=== PATIENT | female | born 1930 | race Caucasian/White ===

== ENCOUNTER 2017-04-18 14:26 | Inpatient (IN) ==
[2017-04-18 15:29] LABS: MANUAL DIFF NEEDED? NO
--- NOTE | 2017-04-18 15:32 | Diag Imaging Result Doc PS360 ---
CHEST-PORTABLE - 04/18/2017 INDICATION: AMS TECHNIQUE: COMPARISON: None FINDINGS: There is a focal alveolar infiltrate at the lateral left lung base. Heart size and pulmonary vascularity is normal. No pneumothorax or pleural effusion. IMPRESSION: Focal infiltrate in the lateral left lung base. Correlate for probable pneumonia or aspiration. Electronically signed by Robby Perkins 04/18/2017 3:29 PM
[2017-04-18 15:33] LABS: BASO% 0.3 % (0.0-0.8); EOS# 0.14 X1000 (0.0-0.7); EOS% 1.6 % (0.0-10.0); HEMATOCRIT 29.9 % (37.0-47.0); IMM GRAN# 0.03 X1000 (0.0-0.04); IMM GRAN% 0.3 % (0.0-0.5); LYMPH# 1.07 X1000 (1.2-3.4); LYMPH% 12.3 % (20.5-51.1); MCH 30.5 PG (27-31); MCHC 33.4 g/dL (33-37); MCV 91.2 FL (81-99); MONO# 0.98 X1000 (0.11-0.59); MONO% 11.3 % (1.7-9.3); MPV 10.4 FL (7.4-10.4); NEUT% 74.2 % (42.2-75.2); PLT 173 X1000 (130-400); RBC 3.28 XMIL (4.2-5.4)
[2017-04-18 15:34] LABS: URINE SOURCE CATH
--- NOTE | 2017-04-18 15:35 | EKG Report ---
Test Performed on : 04/18/2017 2:40:59 PM Test Reason : ams Blood Pressure : / mmHG Vent. Rate : 088 BPM Atrial Rate : 088 BPM P-R Int : 136 ms QRS Dur : 112 ms QT Int : 380 ms P-R-T Axes : 003 025 018 degrees QTc Int : 459 ms Normal sinus rhythm. Incomplete right bundle branch block Borderline ECG When compared with ECG of 08-JUN-2011 18:45, No significant change was found Unconfirmed Result
[2017-04-18 15:38] LABS: BILIRUBIN URINE NEGATIVE (NEGATIVE); BLOOD URINE NEGATIVE (NEGATIVE); COLOR YELLOW; GLUCOSE URINE NEGATIVE (NEGATIVE); LEUKOCYTES URINE TRACE (NEGATIVE); NITRITE URINE NEGATIVE (NEGATIVE); PH URINE 5.5; PROTEIN URINE 30 mg/dL (NEGATIVE); TURBIDITY URINE CLEAR (CLEAR); URINE MICRO REVIEW NEEDED? YES; UROBILINOGEN URINE NORMAL (NORMAL)
[2017-04-18 15:41] LABS: INR 1.03; PROTIME 10.8 Seconds (9.2-11.7); PTT 31.3 Seconds (22.0-36.0)
[2017-04-18 15:50] LABS: ALBUMIN 3.9 g/dL (3.5-5.0); CALCIUM 9.3 mg/dL (8.8-10.2); MAGNESIUM 1.6 mg/dL (1.5-2.7); POTASSIUM 4.5 mmol/L (3.5-5.1); TOTAL BILIRUBIN 0.32 mg/dL (0.20-1.00)
--- NOTE | 2017-04-18 15:57 | Diag Imaging Result Doc PS360 ---
HEAD W/O CONTRAST - 04/18/2017 INDICATION: AMS TECHNIQUE: A CT dose reduction protocol was used. COMPARISON: None FINDINGS: There is mild diffuse atrophy. 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 There are several old lacunar bilaterally. No intracranial mass or hemorrhage. The skull is intact. The sinuses, mastoids, and middle ears are clear. IMPRESSION: Chronic ischemic changes of the brain. No acute abnormality. Electronically signed by Robby Perkins 04/18/2017 3:55 PM
[2017-04-18 15:59] LABS: UR EPITHELIAL CELLS <10 /HPF (<10); URINE BACTERIA NEGATIVE /HPF; URINE CULTURE NEEDED? YES; URINE RBC <10 /HPF (<10); URINE WBC <10 /HPF (<10)
[2017-04-18 16:01] LABS: URINE CASTS NONE SEEN
[2017-04-18] MEDS ORDERED: NS 500 ML IV SCH (16:44)
[2017-04-18] MEDS ORDERED: LEVAQUIN 500 MG/D5W 500 MG/100 ML IVPB IV ONE (16:55)
--- NOTE | 2017-04-18 16:57 | PROVIDER DOCUMENTATION ---
This chart was entered by Eugenio Devi Scribe, acting as scribe for Jakob Thompson MD. HPI-Neurological Disorder - General Chief Complaint: Altered Mental Status Stated Complaint: UTI SX/AMS Time Seen by Provider: 04/18/17 14:45 Source: family Unable to obtain history due to:: altered Allergies/Adverse Reactions: Patient Allergies Allergy/AdvReac Type Severity Reaction Status Date / Time Penicillins Allergy Unknown Unknown Verified 10/18/13 12:36 Home Medications: Home Medication List Medication Instructions Recorded Confirmed Last Taken Type Amlodipine [Norvasc] 5 mg PO DAILY 10/18/13 05/24/16 10/18/13 08:00 History Donepezil [Aricept] 10 mg PO DAILY 10/18/13 05/24/16 10/18/13 08:00 History Famotidine 20 mg PO BID 10/18/13 05/24/16 10/18/13 08:00 History Guaifenesin E.r. [Mucinex] 600 mg PO BID PRN PRN 10/18/13 05/24/16 10/18/13 08: 00 History Latanoprost 0.005% Oph Soln 1 drop DAILY 10/18/13 05/24/16 10/17/13 22:00 History [Xalatan 0.005% Oph Soln] Loratadine [Claritin] 10 mg PO DAILY PRN PRN 10/18/13 05/24/16 10/18/13 08:00 History Lorazepam 0.5 mg PO QAM 10/18/13 05/24/16 10/18/13 08:00 History Lorazepam [Ativan] 1 mg PO QHS 10/18/13 05/24/16 10/17/13 22:00 History Metformin [Glucophage] 500 mg PO BID CC 10/18/13 05/24/16 10/18/13 08:00 History SIMVAstatin [Zocor] 20 mg PO QHS 10/18/13 05/24/16 10/17/13 22:00 History Timolol 0.5% Oph Solution 1 drop BOTH EYES BID 10/18/13 05/24/16 10/18/13 08:00 History [Timoptic 0.5% Oph Solution] Bismuth Subsalicylate [Maalox] 30 ml PO Q4H PRN 05/24/16 05/24/16 Unknown History Cyanocobalamin (Vitamin B-12) 1,000 mcg PO DAILY 05/24/16 05/24/16 Unknown History [Vitamin B12] Ergocalciferol (Vitamin D2) 50,000 unit PO DIRECTED 05/24/16 05/24/16 Unknown History [Vitamin D] Ferrous Sulfate [Iron] 325 mg PO DAILY 05/24/16 05/24/16 Unknown History Loperamide [Imodium] 2 mg PO PRN PRN 05/24/16 05/24/16 Unknown History Losartan [Cozaar] 50 mg PO DAILY 05/24/16 05/24/16 Unknown History Magnesium Hydroxide [Milk of 30 ml PO PRN PRN 05/24/16 05/24/16 Unknown History Magnesia] Melatonin 4.5 mg PO HS 05/24/16 05/24/16 Unknown History Memantine Xr [Namenda Xr] 7 mg PO DAILY 05/24/16 05/24/16 Unknown History Trazodone [Desyrel] 50 mg PO HS 05/24/16 05/24/16 Unknown History Ubidecarenone [Co Q-10] 100 mg PO DAILY 05/24/16 05/24/16 Unknown History Venlafaxine E.r. [Effexor Xr] 300 mg PO DAILY 05/24/16 05/24/16 Unknown History Acetaminophen [Tylenol] 650 mg PO Q4H PRN PRN #0 tablet 05/26/16 Unknown Rx Dicyclomine [Bentyl] 10 mg PO TID PRN PRN #30 capsule 05/26/16 Unknown Rx Mag Hydrox/Al Hydrox/Simeth 30 ml PO Q4H PRN PRN #0 udc 05/26/16 Unknown Rx [Maalox Plus Liquid] - History of Present Illness-Neuro Nature of Presenting Problem: Patient is a 86 y/o F that presents to the ER after son found patient confused and her back hurting. patient is a resident at a local [facility]. Son reports increased confusion in patient. No recent injury. History of UTI's in the past. Patient believes she had a stroke. Severity: reports: mild, moderate Onset/Duration: reports: unsure Timing: reports: still present, constant Context: denies: fever, impaired speech, paresthesia, facial droop, falling Character of Altered Mental Status: reports: confused New weakness or altered sensation location:: reports: none Associated Symptoms: reports: confusion, neck/back pain. denies: headache, fever/chills, loss of consciousness, nausea, vomiting Similar Symptoms Previously?: Yes Recently seen or treated by another doctor?: No Review of Systems - Adult - REVIEW OF SYSTEMS - ADULT ROS:: ROS per family Constitutional: denies: chills, fever Eyes: reports: no symptoms reported Ears, Nose, Mouth & Throat: reports: no symptoms reported Cardiovascular: denies: chest pain, palpitations, syncope Respiratory: denies: cough, shortness of breath, wheezing Gastrointestinal: denies: abdominal pain, diarrhea, nausea, vomiting Genitourinary: reports: frequent UTI's. denies: dysuria, frequency, hematuria Musculoskeletal: reports: back pain. denies: joint pain Integumentary: reports: no symptoms reported Neurological: reports: other (ams). denies: dizziness/vertigo, headache/ migraines Psychiatric: reports: no symptoms reported Endocrine: reports: no symptoms reported Hematologic/Lymphatic: reports: no symptoms reported Allergic/Immunologic: reports: no symptoms reported All Other Systems: Reviewed and Negative Past History - Adult - PAST MEDICAL HISTORY-ADULT Review of Records: reports: Old Records Reviewed, Nursing Assessment Review, Medications Reviewed Psychiatric: reports: depression - PRIOR SURGERIES/PROCEDURES Surgical/Procedure History: reports: hysterectomy, other (tumor removed) - IMMUNIZATION STATUS Childhood Immunizations: See Nurse Assessment Flu Vaccine: See Nurse Assessment - FAMILY HISTORY Family History: reviewed, not pertinent - SOCIAL HISTORY Smoking: quit less than 1 year, cigarettes Living Situation: care facility Physical Exam- Neurological - Physical Exam-Neuro Initial Vital Signs Reviewed: Yes General Appearance: alert, no apparent distress Eye Exam: bilateral eye: normal inspection, PERRL HENMT: normocephalic/atraumatic, moist mucous membranes, normal ENT inspection Head Injury: no evidence of injury. 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 II-XII nml as tested, no motor/sensory deficits Integumentary: normal color, warm/dry Psych/Mental Status: other (normal and appropriate for age) Progress - PLAN OF CARE/RESULTS Progress/Plan/Lab Results: Vital Signs - 8 hr 04/18/17 14:32 04/18/17 15:30 Temperature 97.2 F L Pulse Rate 95 H 85 Respiratory Rate 18 16 Blood Pressure 122/50 133/61 O2 Sat by Pulse Oximetry 100 Laboratory Results - last 24 hr 04/18/17 04/18/17 04/18/17 14:54 14:54 14:54 WBC 8.68 RBC 3.28 L Hgb 10.0 L Hct 29.9 L MCV 91.2 MCH 30.5 MCHC 33.4 RDW Std Deviation 13.0 Plt Count 173 MPV 10.4 Immature Gran % (Auto) 0.3 Neut % (Auto) 74.2 Lymph % (Auto) 12.3 L [place] % (Auto) 11.3 H Eos % (Auto) 1.6 Baso % (Auto) 0.3 Immature Gran # (Auto) 0.03 Neut # (Auto) 6.43 Lymph # (Auto) 1.07 L [place] # (Auto) 0.98 H Eos # (Auto) 0.14 Baso # (Auto) 0.03 PT INR PTT (Actin FS) Sodium 133 L Potassium 4.5 Chloride 96 L Carbon Dioxide 24 L Anion Gap 13 BUN 35 H Creatinine 2.1 H Estimated GFR/1.73 m2 22 BUN/Creatinine Ratio 17 Glucose 98 Calculated Osmolality 274 Calcium 9.3 Magnesium 1.6 Total Bilirubin 0.32 AST 13 ALT 7 L Alkaline Phosphatase 72 Creatine Kinase 39 Troponin T Qyl-V-Mhagajekdxw Pept 1892 H Total Protein 7.0 Albumin 3.9 Globulin 3.1 Albumin/Globulin Ratio 1.3 Plasma Lactate Urine Source Urine Color Urine Turbidity Urine pH Ur Specific [place] Urine Protein Ur Glucose (Stick) Ur Ketones (Stick) Urine Blood Urine Nitrite Urine Bilirubin Urobilinogen Dipstick Urine Leukocytes Urine WBC (Auto) Urine RBC (Auto) U Epithel Cells (Auto) Urine Bacteria (Auto) Urine Crystals Small Round Cells Urine Casts Urine Yeast-like Cells 04/18/17 04/18/1717 14:54 14:54 15:25 WBC RBC Hgb Hct MCV MCH MCHC RDW Std Deviation Plt Count MPV Immature Gran % (Auto) Neut % (Auto) Lymph % (Auto) [place] % (Auto) Eos % (Auto) Baso % (Auto) Immature Gran # (Auto) Neut # (Auto) Lymph # (Auto) [place] # (Auto) Eos # (Auto) Baso # (Auto) PT 10.8 INR 1.03 PTT (Actin FS) 31.3 Sodium Potassium Chloride Carbon Dioxide Anion Gap BUN Creatinine Estimated GFR/1.73 m2 BUN/Creatinine Ratio Glucose Calculated Osmolality Calcium Magnesium Total Bilirubin AST ALT Alkaline Phosphatase Creatine Kinase Troponin T 0.051 Pqz-D-Mqvojmexhsk Pept Total Protein Albumin Globulin Albumin/Globulin Ratio Plasma Lactate Urine Source CATH Urine Color YELLOW Urine Turbidity CLEAR Urine pH 5.5 Ur Specific [place] 1.020 Urine Protein 30 A Ur Glucose (Stick) NEGATIVE Ur Ketones (Stick) NEGATIVE Urine Blood NEGATIVE Urine Nitrite NEGATIVE Urine Bilirubin NEGATIVE Urobilinogen Dipstick NORMAL Urine Leukocytes TRACE A Urine WBC (Auto) <10 Urine RBC (Auto) <10 U Epithel Cells (Auto) <10 Urine Bacteria (Auto) NEGATIVE Urine Crystals Not Reportable Small Round Cells Not Reportable Urine Casts NONE SEEN Urine Yeast-like Cells Not Reportable 04/18/17 16:10 WBC RBC Hgb Hct MCV MCH MCHC RDW Std Deviation Plt Count MPV Immature Gran % (Auto) Neut % (Auto) Lymph % (Auto) [place] % (Auto) Eos % (Auto) Baso % (Auto) Immature Gran # (Auto) Neut # (Auto) Lymph # (Auto) [place] # (Auto) Eos # (Auto) Baso # (Auto) PT INR PTT (Actin FS) Sodium Potassium Chloride Carbon Dioxide Anion Gap BUN Creatinine Estimated GFR/1.73 m2 BUN/Creatinine Ratio Glucose Calculated Osmolality Calcium Magnesium Total Bilirubin AST ALT Alkaline Phosphatase Creatine Kinase Troponin T Rts-E-Uoapvjyrlsc Pept Total Protein Albumin Globulin Albumin/Globulin Ratio Plasma Lactate 2.1 Urine Source Urine Color Urine Turbidity Urine pH Ur Specific [place] Urine Protein Ur Glucose (Stick) Ur Ketones (Stick) Urine Blood Urine Nitrite Urine Bilirubin Urobilinogen Dipstick Urine Leukocytes Urine WBC (Auto) Urine RBC (Auto) U Epithel Cells (Auto) Urine Bacteria (Auto) Urine Crystals Small Round Cells Urine Casts Urine Yeast-like Cells Orders Category Date Time Status Cardiac Monitoring DIRECTED Care 04/18/17 15:11 Active Finger Stick Blood Sugar (ED) DIRECTED Care 04/18/17 15:11 Active Saline Loc NOW Care 04/18/17 15:11 Active CHEST-PORTABLE [RAD] Stat Exams 04/18/17 15:11 Completed HEAD W/O CONTRAST [CT] Stat Exams 04/18/17 15:11 Completed BLOOD CULTURE [BLDCUL] Stat Lab 04/18/17 15:20 Ordered CBC WITH ELECTRONIC DIFF [HEME] Stat Lab 04/18/17 14:54 Completed CK PROFILE [SP CHEM] Stat Lab 04/18/17 14:54 Completed COMPREHENSIVE METABOLIC PANEL [CHEM] Stat Lab 04/18/17 14:54 Completed LACTATE, PLASMA [CHEM] Stat Lab 04/18/17 16:10 Completed MAGNESIUM [CHEM] Stat Lab 04/18/17 14:54 Completed PRO B-NATRIURETIC PEPTIDE Stat Lab 04/18/17 14:54 Completed PROTIME WITH INR [COAG] Stat Lab 04/18/17 14:54 Completed PTT [COAG] Stat Lab 04/18/17 14:54 Completed TROPONIN T Stat Lab 04/18/17 14:54 Completed URINALYSIS W/POSS RFLX CULT-1 [URINALYSIS] Stat Lab 04/18/17 15:25 Completed URINE CULTURE [RM] Routine Lab 04/18/17 16:00 Received URINE MANUAL MICROSCOPIC [URINALYSIS] Stat Lab 04/18/17 15:25 Completed 0.9% Sodium Chloride Inj [Ns] 500 ml Med 04/18/17 16:44 Active IV 125 mls/hr Levaquin 500 mg/D5w IV Now Med 04/18/17 16:55 Ordered Levofloxacin 500 mg/D5w [Levaquin 500 mg/D5w] 500 mg in 100 ml IV NOW Pulse Oximetry Stat Oth 04/18/17 15:11 Active EKG [EKG] Stat Ther 04/18/17 14:40 Draft Orders Category Date Time Status Cardiac Monitoring DIRECTED Care 04/18/17 15:11 Active Finger Stick Blood Sugar (ED) DIRECTED Care 04/18/17 15:11 Active Saline Loc NOW Care 04/18/17 15:11 Active CHEST-PORTABLE [RAD] Stat Exams 04/18/17 15:11 Completed HEAD W/O CONTRAST [CT] Stat Exams 04/18/17 15:11 Completed BLOOD CULTURE [BLDCUL] Stat Lab 04/18/17 15:20 Ordered CBC WITH ELECTRONIC DIFF [HEME] Stat Lab 04/18/17 14:54 Completed CK PROFILE [SP CHEM] Stat Lab 04/18/17 14:54 Completed COMPREHENSIVE METABOLIC PANEL [CHEM] Stat Lab 04/18/17 14:54 Completed LACTATE, PLASMA [CHEM] Stat Lab 04/18/17 16:10 Completed MAGNESIUM [CHEM] Stat Lab 04/18/17 14:54 Completed PRO B-NATRIURETIC PEPTIDE Stat Lab 04/18/17 14:54 Completed PROTIME WITH INR [COAG] Stat Lab 04/18/17 14:54 Completed PTT [COAG] Stat Lab 04/18/17 14:54 Completed TROPONIN T Stat Lab 04/18/17 14:54 Completed URINALYSIS W/POSS RFLX CULT-1 [URINALYSIS] Stat Lab 04/18/17 15:25 Completed URINE CULTURE [RM] Routine Lab 04/18/17 16:00 Received URINE MANUAL MICROSCOPIC [URINALYSIS] Stat Lab 04/18/17 15:25 Completed 0.9% Sodium Chloride Inj [Ns] 500 ml Med 04/18/17 16:44 Active IV 125 mls/hr Pulse Oximetry Stat Oth 04/18/17 15:11 Active EKG [EKG] Stat Ther 04/18/17 14:40 Draft Vital Signs Temp Pulse Resp BP Pulse Ox 04/18/17 15:30 85 16 133/61 04/18/17 14:32 97.2 F L 95 H 18 122/50 100 Penicillins Allergy (Unknown, Verified 10/18/13 12:36) Unknown Amlodipine [Norvasc] 5 mg PO DAILY 10/18/13 Donepezil [Aricept] 10 mg PO DAILY 10/18/13 Famotidine 20 mg PO BID 10/18/13 Guaifenesin E.r. [Mucinex] 600 mg PO BID PRN PRN 10/18/13 Latanoprost 0.005% Oph Soln [Xalatan 0.005% Oph Soln] 1 drop DAILY 10/18/13 Loratadine [Claritin] 10 mg PO DAILY PRN PRN 10/18/13 Lorazepam 0.5 mg PO QAM 10/18/13 Lorazepam [Ativan] 1 mg PO QHS 10/18/13 Metformin [Glucophage] 500 mg PO BID CC 10/18/13 SIMVAstatin [Zocor] 20 mg PO QHS 10/18/13 Timolol 0.5% Oph Solution [Timoptic 0.5% Oph Solution] 1 drop BOTH EYES BID Bismuth Subsalicylate [Maalox] 30 ml PO Q4H PRN 05/24/16 Cyanocobalamin (Vitamin B-12) [Vitamin B12] 1,000 mcg PO DAILY 05/24/16 Ergocalciferol (Vitamin D2) [Vitamin D] 50,000 unit PO DIRECTED 05/24/16 Ferrous Sulfate [Iron] 325 mg PO DAILY 05/24/16 Loperamide [Imodium] 2 mg PO PRN PRN 05/24/16 Losartan [Cozaar] 50 mg PO DAILY 05/24/16 Magnesium Hydroxide [Milk of Magnesia] 30 ml PO PRN PRN 05/24/16 Melatonin 4.5 mg PO HS 05/24/16 Memantine Xr [Namenda Xr] 7 mg PO DAILY 05/24/16 Trazodone [Desyrel] 50 mg PO HS 05/24/16 Ubidecarenone [Co Q-10] 100 mg PO DAILY 05/24/16 Venlafaxine E.r. [Effexor Xr] 300 mg PO DAILY 05/24/16 Acetaminophen [Tylenol] 650 mg PO Q4H PRN PRN #0 tablet 05/26/16 Dicyclomine [Bentyl] 10 mg PO TID PRN PRN #30 capsule 05/26/16 Mag Hydrox/Al Hydrox/Simeth [Maalox Plus Liquid] 30 ml PO Q4H PRN PRN #0 udc Laboratory 04/18/17 04/18/17 04/18/17 16:10 15:25 14:54 WBC RBC Hgb Hct MCV MCH MCHC RDW Std Deviation Plt Count MPV Immature Gran % (Auto) Neut % (Auto) Lymph % (Auto) [place] % (Auto) Eos % (Auto) Baso % (Auto) Immature Gran # (Auto) Neut # (Auto) Lymph # (Auto) [place] # (Auto) Eos # (Auto) Baso # (Auto) PT INR PTT (Actin FS) Sodium Potassium Chloride Carbon Dioxide Anion Gap BUN Creatinine Estimated GFR/1.73 m2 BUN/Creatinine Ratio Glucose Calculated Osmolality Calcium Magnesium Total Bilirubin AST ALT Alkaline Phosphatase Creatine Kinase Troponin T 0.051 Ayl-U-Bwskiwsfjzw Pept Total Protein Albumin Globulin Albumin/Globulin Ratio Plasma Lactate 2.1 Urine Source CATH Urine Color YELLOW Urine Turbidity CLEAR Urine pH 5.5 Ur Specific [place] 1.020 Urine Protein 30 A Ur Glucose (Stick) NEGATIVE Ur Ketones (Stick) NEGATIVE Urine Blood NEGATIVE Urine Nitrite NEGATIVE Urine Bilirubin NEGATIVE Urobilinogen Dipstick NORMAL Urine Leukocytes TRACE A Urine WBC (Auto) <10 Urine RBC (Auto) <10 U Epithel Cells (Auto) <10 Urine Bacteria (Auto) NEGATIVE Urine Crystals Not Reportable Small Round Cells Not Reportable Urine Casts NONE SEEN Urine Yeast-like Cells Not Reportable 04/18/17 04/18/17 04/18/17 14:54 14:54 14:54 WBC 8.68 RBC 3.28 L Hgb 10.0 L Hct 29.9 L MCV 91.2 MCH 30.5 MCHC 33.4 RDW Std Deviation 13.0 Plt Count 173 MPV 10.4 Immature Gran % (Auto) 0.3 Neut % (Auto) 74.2 Lymph % (Auto) 12.3 L [place] % (Auto) 11.3 H Eos % (Auto) 1.6 Baso % (Auto) 0.3 Immature Gran # (Auto) 0.03 Neut # (Auto) 6.43 Lymph # (Auto) 1.07 L [place] # (Auto) 0.98 H Eos # (Auto) 0.14 Baso # (Auto) 0.03 PT 10.8 INR 1.03 PTT (Actin FS) 31.3 Sodium Potassium Chloride Carbon Dioxide Anion Gap BUN Creatinine Estimated GFR/1.73 m2 BUN/Creatinine Ratio Glucose Calculated Osmolality Calcium Magnesium Total Bilirubin AST ALT Alkaline Phosphatase Creatine Kinase Troponin T Bki-V-Judnzfdxqmj Pept 1892 H Total Protein Albumin Globulin Albumin/Globulin Ratio Plasma Lactate Urine Source Urine Color Urine Turbidity Urine pH Ur Specific [place] Urine Protein Ur Glucose (Stick) Ur Ketones (Stick) Urine Blood Urine Nitrite Urine Bilirubin Urobilinogen Dipstick Urine Leukocytes Urine WBC (Auto) Urine RBC (Auto) U Epithel Cells (Auto) Urine Bacteria (Auto) Urine Crystals Small Round Cells Urine Casts Urine Yeast-like Cells 04/18/17 14:54 WBC RBC Hgb Hct MCV MCH MCHC RDW Std Deviation Plt Count MPV Immature Gran % (Auto) Neut % (Auto) Lymph % (Auto) [place] % (Auto) Eos % (Auto) Baso % (Auto) Immature Gran # (Auto) Neut # (Auto) Lymph # (Auto) [place] # (Auto) Eos # (Auto) Baso # (Auto) PT INR PTT (Actin FS) Sodium 133 L Potassium 4.5 Chloride 96 L Carbon Dioxide 24 L Anion Gap 13 BUN 35 H Creatinine 2.1 H Estimated GFR/1.73 m2 22 BUN/Creatinine Ratio 17 Glucose 98 Calculated Osmolality 274 Calcium 9.3 Magnesium 1.6 Total Bilirubin 0.32 AST 13 ALT 7 L Alkaline Phosphatase 72 Creatine Kinase 39 Troponin T Lkh-W-Awgcvxgeoan Pept Total Protein 7.0 Albumin 3.9 Globulin 3.1 Albumin/Globulin Ratio 1.3 Plasma Lactate Urine Source Urine Color Urine Turbidity Urine pH Ur Specific [place] Urine Protein Ur Glucose (Stick) Ur Ketones (Stick) Urine Blood Urine Nitrite Urine Bilirubin Urobilinogen Dipstick Urine Leukocytes Urine WBC (Auto) Urine RBC (Auto) U Epithel Cells (Auto) Urine Bacteria (Auto) Urine Crystals Small Round Cells Urine Casts Urine Yeast-like Cells Result Diagrams: 04/18/17 14:54 04/18/17 14:54 - EKG 1 Time of EKG reading by physician:: 14:40 EKG Read and Signed by:: Jakob Thompson EKG Interpretation (*Must complete 3 of following elements*): Abnormal Rate: 88 Rhythm: NSR Zanoni: normal QRS: RBB (Incomplete) [place] Interval: normal ST Wave: normal - XRAY 1 XRAY Study: Chest Impression: Abnormal XRAY Interpretation: focal infiltrate in the lateral left lung base - CT/MRI 1 CT Study: Head Impression: Abnormal CT Results: chronic ischemic changes, nothing acute - CONSULTS/PCP/HOSPITALIST Notification #1 *Consult/PCP/Hospitalist*: Dr.Scott Arvizu Time Discussed: 16:51 Reason/Comments: ams, EDITH, left lung infiltrate Consult Disposition: Will see in ED, Admit Departure - Departure Date of Disposition Decision: 04/18/17 Time of Disposition Decision: 16:53 DIAGNOSIS: Lung infiltrate, Altered mental status, EDITH (acute kidney injury) Disposition: ADMITTED INPATIENT 09 Certified Medical Emergency: Emergent Condition: Stable Referrals and Follow-Ups: Gavin Arvizu MD [Primary Care Provider] - - Critical Care Note This patient required my direct & personal management of CC.: No This chart was documented by the indicated scribe, (Eugenio Devi, [place]) and accurately reflects the services I performed and decisions made by me, Jakob Thompson MD, as attested by the provider's signature.
[2017-04-18] MEDS ORDERED: HUMALOG SUBQ ONE (19:31)
[2017-04-18] MEDS ORDERED: PERICOLACE PO PRN (19:31)
[2017-04-18] MEDS ORDERED: ZOFRAN IV PRN (19:31)
[2017-04-18] MEDS ORDERED: BENTYL PO PRN (19:31)
[2017-04-18] MEDS ORDERED: TYLENOL PO PRN ×2 (19:31)
[2017-04-18] MEDS ORDERED: IMODIUM PO PRN (19:31)
[2017-04-18] MEDS ORDERED: PEPCID PO PRN (19:31)
[2017-04-18] MEDS: NS 1,000 ML IV SCH (20:13)
[2017-04-18] MEDS: ATIVAN PO SCH (20:33)
[2017-04-18] MEDS: DESYREL PO SCH (20:34)
[2017-04-18] MEDS: ZOCOR PO SCH (20:34)
[2017-04-18] MEDS: MELATONIN PO SCH (20:35)
[2017-04-19] MEDS: TIMOPTIC 0.5% OPH SOLUTION BOTH EYES SCH ×3 (00:12→21:59)
--- NOTE | 2017-04-19 03:57 | HISTORY AND PHYSICAL ---
PRIMARY CARE PHYSICIAN: Dr. Gavin Arvizu. CHIEF COMPLAINT: Alteration of mental status. HISTORY OF PRESENT ILLNESS: An 86-year-old, white female with a very complicated past medical history, presents for evaluation of above-mentioned symptoms. Current history of present illness began yesterday. The patient went on a ride with her boyfriend as she is accustomed to on Mondays. No evidence of abnormalities were identified prior to this or during this event. Upon returning home to her assisted living facility, several caregivers noted some increasing irritability. The patient was noted to sleep poorly overnight. Upon arising this morning, patient was noted to have increased irritability with all caregivers. She had a shaking chill, but denied fevers. She also noted some shortness of breath and dysuria. No intervention was sought as patient did not readily make these symptoms available. This afternoon, patient's son presented for a visit with her granddaughter. While there, patient was noted to use foul language which is out of character. Because of these changes, patient was brought to the emergency department. Upon arrival, a full evaluation was pursued. Chest x-ray suggested a possible pneumonia. Laboratory data revealed a significant anemia and acute renal failure. Patient will be admitted to the hospital for full evaluation and management of these conditions. Of note, the patient has had a decreased appetite recently. She denies fevers, cough, congestion, change in bowel movements, hematochezia, or melena. PAST MEDICAL HISTORY: 1. History of an abnormal electrocardiogram with incomplete right bundle branch block. 2. Allergic rhinitis. 3. Anxiety/depression. 4. Cervical spine pain, chronic. 5. Constipation. 6. Type 2 diabetes. 7. Insomnia. 8. Long-standing thoracic spine pain. 9. Chronic lower extremity edema. 10. Hypertension. 11. Hypertriglyceridemia. 12. Nonalcoholic fatty liver disease. 13. Glaucoma. 14. History of hypercalcemia. 15. Hyperlipidemia. 16. Low back pain, chronic. 17. Osteoarthritis. 18. Osteoporosis. 19. History of an ovarian cyst, status post CHELSEA/BSO in the 1980s. 20. Postmenopausal state. 21. Dementia. 22. Urge/stress incontinence. CURRENT MEDICATIONS: 1. Acetaminophen 325 mg 1 tablet every 4-6 hours as needed. 2. Amlodipine 5 mg daily. 3. Benadryl 25 mg 1/2 a tablet every 6 hours as needed. 4. Bentyl 10 mg 3 times daily as needed. 5. Donepezil 100 mg daily. 6. Effexor XR 300 mg daily. 7. Famotidine 20 mg twice daily. 8. Iron sulfate 325 mg daily. 9. Latanoprost 1 drop in each eye daily. 10. Loperamide 2 mg as needed. 11. Loratadine 10 mg daily. 12. Lorazepam 0.5 mg 1 tablet in the morning and 2 tablets at bedtime. 13. Maalox as needed. 14. Melatonin 4.5 mg at bedtime. 15. Milk of magnesia as needed. 16. MiraLAX daily as needed. 17. Mucinex ER 600 mg twice daily. 18. Namenda XR 7 mg daily. 19. Pepto-Bismol as needed. 20. Senna-S 1 tablet twice daily. 21. Simvastatin 20 mg at bedtime. 22. Timolol 1 drop in each eye twice daily. 23. Trazodone 50 mg 2 tablets at bedtime. 24. Vitamin B12 1000 mcg daily. ALLERGIES: Patient states she is allergic to penicillin. SOCIAL HISTORY: Patient previously smoked 1/4 to 1/2 pack per day for 30 years. She stopped in the . She quit alcohol in 1977. She denies illicit drug use. 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 She is unable exercise routinely. FAMILY HISTORY: Patient's father passed at age 52 secondary to a suicide. Patient's mother passed at age 95 secondary to complications of a stroke. REVIEW OF SYSTEMS: A 12 point review of systems was performed. Pertinent positives and negatives are noted in the history of present illness. PHYSICAL EXAMINATION: VITAL SIGNS: Temperature 97.2 degrees, heart rate 89, respirations 19, blood pressure is 146/70. GENERAL: Elderly, in no acute distress. CARDIOVASCULAR: Regular rate and rhythm. No significant murmurs, rubs, or gallops. PULMONARY: Clear to auscultation bilaterally. ABDOMEN: Soft, nontender, nondistended. Positive bowel sounds. EXTREMITIES: Moves all extremities well. No significant clubbing, cyanosis, or edema. NEUROLOGIC: Cranial nerves 2 through 12 grossly intact. Motor and sensory grossly intact. PSYCHOLOGIC: Patient is pleasantly confused. LABORATORY DATA: White blood cell count 8.68, hemoglobin 10, hematocrit 29.9, platelet count is 173,000. PT 10.8, INR is 1.03, PTT is 31.3. Sodium 133, potassium 4.5, chloride 96, bicarb 24, BUN 35, creatinine 2.1, glucose 98, calcium 9.3, magnesium 1.6. Total bilirubin 0.32, total protein 7, albumin 3.9, alkaline phosphatase 72, AST 13, ALT 7. Urinalysis revealed 30 protein, trace leukocyte esterase. Chest x-ray revealed focal infiltrate in the lateral left lung base. CT scan of the head revealed chronic ischemic changes of the brain. No acute abnormality. ASSESSMENT AND PLAN: An 86-year-old, white female with a very complicated past medical history, presents for evaluation of alteration of mental status. Full evaluation in the emergency department revealed a presumed community-acquired pneumonia versus aspiration pneumonia with acute renal failure and acute on chronic anemia. Patient will be admitted to the hospital for full evaluation and management of each of these conditions. 1. Admit to general medicine. 2. Community-acquired pneumonia versus aspiration pneumonia-interestingly, patient's white blood cell count is within normal limits. As above, chest x-ray returned abnormal. We will initiate levofloxacin therapy. We will check blood cultures x2. We will consider a CT scan evaluation for further differentiating the significance of infiltrate. 3. Acute renal failure-is likely secondary to dehydrated state. We will start patient on aggressive, but cautious hydration. We will monitor patient's clinical course closely. Her baseline creatinine is 1.2. 4. Alteration of mental status-this is above baseline dementia. This likely is secondary to her acute illness. CT scan of the head returned negative. For now, we will treat patient's above acute illnesses. We will follow this as well. 5. Anemia-patient has chronic anemia. This does appear to be more significant than baseline. We will check an anemia panel. We will Hemoccult all stools. We will determine if further intervention is warranted. 6. Profound weakness-patient has chronic weakness. I am concerned with her acute illness that this likely will progress. We will immediately start physical therapy to maintain adequate functional status. We will follow this closely as well. 7. Diabetes-we will cover patient with sliding scale insulin. 8. Hypertension-we will continue patient on her home medications. 9. Glaucoma-we will continue home drops. This will be followed. 10. Fluid, electrolytes, nutrition. We will monitor electrolytes. Normal saline at 70 mL an hour. Renal diet. 11. Prophylaxis. Patient will be placed on sequential compression devices. cc: Gavin Arvizu MD
[2017-04-19 06:45] LABS: MANUAL DIFF NEEDED? NO
[2017-04-19] MEDS: CLARITIN PO PRN ×2 (07:00→23:00)
[2017-04-19] MEDS: MUCINEX PO PRN ×2 (07:00→22:59)
[2017-04-19 07:08] LABS: BASO% 0.2 % (0.0-0.8); EOS% 1.5 % (0.0-10.0); HEMATOCRIT 26.1 % (37.0-47.0); HEMOGLOBIN 8.6 g/dL (12.0-16.0); LYMPH# 0.89 X1000 (1.2-3.4); LYMPH% 13.5 % (20.5-51.1); MCH 30.1 PG (27-31); MCV 91.3 FL (81-99); MONO# 0.73 X1000 (0.11-0.59); MONO% 11.1 % (1.7-9.3); MPV 10.6 FL (7.4-10.4); NEUT% 73.7 % (42.2-75.2); PLT 160 X1000 (130-400); RBC 2.86 XMIL (4.2-5.4)
[2017-04-19 07:22] LABS: ALBUMIN 3.2 g/dL (3.5-5.0); CALCIUM 8.4 mg/dL (8.8-10.2); POTASSIUM 4.6 mmol/L (3.5-5.1); TOTAL BILIRUBIN 0.22 mg/dL (0.20-1.00); TOTAL PROTEIN 6.1 g/dL (6.3-8.3)
[2017-04-19] MEDS ORDERED: FERROUS SULFATE PO SCH (09:00)
[2017-04-19 10:13] LABS: FERRITIN 229 ng/mL (13-150)
[2017-04-19] MEDS: EFFEXOR XR PO SCH (10:14)
[2017-04-19] MEDS: NAMENDA XR PO SCH (10:15)
[2017-04-19] MEDS: VITAMIN B-12 PO SCH (10:15)
[2017-04-19] MEDS: XALATAN 0.005% OPH SOLN BOTH EYES SCH (10:15)
[2017-04-19] MEDS: NORVASC PO SCH (10:15)
[2017-04-19] MEDS: ARICEPT PO SCH (10:15)
[2017-04-19] MEDS: ATIVAN PO SCH ×2 (10:22→21:58)
--- NOTE | 2017-04-19 12:15 | Diag Imaging Result Doc PS360 ---
EXAM: CT THORAX W/O CONTRAST HISTORY: possible pneumonia TECHNIQUE: CT chest without contrast. Dose reduction protocol. COMPARISON: None. FINDINGS: There is a dense infiltrate in the left lower lobe with air bronchograms. There is a small left pleural effusion measuring 13 mm posteriorly and inferiorly in the midline. Trace fluid on the right. The patient has emphysema. No cardiomegaly. There are calcified mediastinal and hilar lymph nodes with scattered granuloma. Fibrosis is found in the lung apices. IMPRESSION: 1.Left lower lobe pneumonia with a small left pleural effusion 2.Emphysema 3.Apical scarring Electronically signed by Krystian Gonzáles 04/19/2017 12:11 PM
[2017-04-19] MEDS: FOLIC ACID PO SCH (16:36)
[2017-04-19] MEDS: LEVAQUIN 500 MG/D5W 500 MG/100 ML IVPB IV SCH (18:20)
[2017-04-19] MEDS: ZOCOR PO SCH (21:58)
[2017-04-19] MEDS: FERROUS SULFATE PO SCH (21:59)
[2017-04-19] MEDS: MELATONIN PO SCH (21:59)
[2017-04-19] MEDS: DESYREL PO SCH (22:00)
[2017-04-19] MEDS: NS 1,000 ML IV SCH (22:00)
[2017-04-20] MEDS: NS 1,000 ML IV SCH ×3 (06:38→21:17)
[2017-04-20 06:56] LABS: MANUAL DIFF NEEDED? NO
--- NOTE | 2017-04-20 06:59 | PROGRESS NOTE ---
DATE: 04/19/2017 SUBJECTIVE: Over the course of the last 24 hours, patient's overall condition has improved slightly. The patient was admitted with alteration of mental status. She has baseline dementia. At present time, patient's mental status has returned to approximate baseline. In addition, the patient was found to have an underlying pneumonia as well as acute renal failure. Patient was started on IV fluids. Renal function today has improved, although not to baseline. CT scan of the chest performed today confirmed a left lower lobe pneumonia with a small left pleural effusion. The patient denies cough, congestion, fevers, chills, nausea, and vomiting. Physical therapy worked with the patient today. Concerns in regards to her ambulatory stability was not raised. OBJECTIVE: T-max 99.0 degrees, heart rate 81-95, respirations 16-20, blood pressure 133-155/56- 69. General: Elderly, in no acute distress. Cardiovascular: Regular rate and rhythm. No significant murmurs, rubs, or gallops. Pulmonary: Crackles at bilateral bases. Adequate air movement. Abdomen is nontender and nondistended. Positive bowel sounds. Extremities: Moves all extremities well. No significant clubbing, cyanosis, or edema. Dermatologic: Evaluation reveals no evidence of rash. LABORATORY DATA: White blood cell count 6.58, hemoglobin 8.6, hematocrit 26.1, platelet count 160,000. Sodium 139, potassium 4.6, chloride 102, bicarb 23. BUN 24, creatinine 1.6, glucose 81, calcium 8.4. Total bilirubin 0.22. Total protein 6.1. Albumin 3.2, alkaline phosphatase 65, AST 11 and ALT 6, iron 21, TIBC 196. Percent saturation 11. Ferritin 229. Vitamin B12 is 1549, folate 4.7. ASSESSMENT AND PLAN: 1. Community acquired pneumonia versus aspiration pneumonia - Clinically, the patient is improving. For now, we will continue levofloxacin therapy. Blood cultures have returned negative. We will continue with incentive spirometry. We will follow. 2. Acute renal failure - Patient's creatinine has improved from 2.1 to 1.6. Baseline creatinine is approximately 1.2. For now, we will continue IV fluids. 3. Alteration of mental status, above baseline dementia - This likely is secondary to her acute illness. The patient is achieving improvement. For now, we will continue treatment as above. 4. Anemia - This is significant. Hemoccults are pending. Patient's evaluation suggestive of an iron and a folate deficiency. We will increase iron replacement to twice daily. We will initiate folate replacement. We will follow this. 5. Profound weakness - As above, physical therapy was initiated today. Question regarding a possible rehabilitation was raised. We will re-evaluate in the morning and determine if discharge to rehabilitation is most appropriate. 6. Diabetes - We will continue patient on sliding scale insulin. Blood sugars are controlled. 7. Hypertension - We will continue her home medications. Blood pressure is reasonably controlled. 8. Glaucoma - We will continue home eye drops. 9. Disposition - At this point, patient continues to require [facility] care in a hospital setting. We will plan discharge home once appropriate. cc: Gavin Arvizu MD MTDD
[2017-04-20 07:22] LABS: ALBUMIN 3.2 g/dL (3.5-5.0); CALCIUM 8.6 mg/dL (8.8-10.2); POTASSIUM 4.4 mmol/L (3.5-5.1); TOTAL BILIRUBIN 0.16 mg/dL (0.20-1.00); TOTAL PROTEIN 5.9 g/dL (6.3-8.3)
[2017-04-20 07:29] LABS: BASO% 0.4 % (0.0-0.8); EOS# 0.22 X1000 (0.0-0.7); EOS% 3.9 % (0.0-10.0); HEMATOCRIT 24.3 % (37.0-47.0); HEMOGLOBIN 8.2 g/dL (12.0-16.0); LYMPH# 1.06 X1000 (1.2-3.4); LYMPH% 18.7 % (20.5-51.1); MCH 30.7 PG (27-31); MCHC 33.7 g/dL (33-37); MONO# 0.71 X1000 (0.11-0.59); MONO% 12.5 % (1.7-9.3); MPV 10.2 FL (7.4-10.4); NEUT% 64.5 % (42.2-75.2); PLT 154 X1000 (130-400); RBC 2.67 XMIL (4.2-5.4)
[2017-04-20] MEDS: EFFEXOR XR PO SCH (09:05)
[2017-04-20] MEDS: NORVASC PO SCH (09:05)
[2017-04-20] MEDS: VITAMIN B-12 PO SCH (09:05)
[2017-04-20] MEDS: FOLIC ACID PO SCH (09:05)
[2017-04-20] MEDS: ARICEPT PO SCH (09:06)
[2017-04-20] MEDS: ATIVAN PO SCH ×2 (09:06→21:16)
[2017-04-20] MEDS: FERROUS SULFATE PO SCH ×2 (09:06→21:15)
[2017-04-20] MEDS: NAMENDA XR PO SCH (09:06)
[2017-04-20] MEDS: XALATAN 0.005% OPH SOLN BOTH EYES SCH (09:10)
[2017-04-20] MEDS: PERICOLACE PO SCH ×2 (09:10→21:18)
[2017-04-20] MEDS: TIMOPTIC 0.5% OPH SOLUTION BOTH EYES SCH ×2 (09:10→21:18)
[2017-04-20] MEDS: LEVAQUIN 500 MG/D5W 500 MG/100 ML IVPB IV SCH (17:04)
--- NOTE | 2017-04-20 18:18 | PROGRESS NOTE ---
DATE: 04/20/2017 SUBJECTIVE: Overall, patient continues to very slowly improve. The patient's mental status is at baseline. Her renal function is slowly improving. She is tolerating IV fluids. She denies fevers, chills, nausea, vomiting, shortness of breath, or chest discomfort. The patient remains fatigued/weak. OBJECTIVE: Vital Signs: T-max is 98.6, heart rate 70-85, respirations 17-18. Blood pressure 134- 143/48-66. General: Elderly, no acute distress. Cardiovascular: Regular rate and rhythm. No significant murmurs, rubs, or gallops. Pulmonary: Clear to auscultation bilaterally. Abdomen: Soft, nontender, nondistended. Positive bowel sounds. Extremities: Moves all extremities well. No significant clubbing, cyanosis, or edema. Dermatologic: Evaluation reveals no evidence of rash. LABORATORY DATA: White blood cell count 5.68, hemoglobin 8.2, hematocrit 24.3, platelet count 154,000. Sodium 136, potassium 3.4, chloride 103, bicarb 22, BUN 24, creatinine 1.6, glucose 85, calcium 8.6, total bilirubin 0.16, total protein 5.9, albumin 3.2, alkaline phosphatase 62, AST 13, ALT 7. ASSESSMENT AND PLAN: 1. Community acquired pneumonia versus aspiration pneumonia-clinically, patient is improving with levofloxacin therapy. We will continue to encourage incentive spirometry. We will follow this. 2. Acute renal failure-patient's creatinine has improved from 2.1 to 1.6 while hospitalized. Her baseline creatinine is 1.2. For now, we will continue IV fluids. 3. Alteration of mental status-patient has baseline dementia. Unfortunately, she experienced increasing confusion above her baseline upon admission. With treatment of her underlying condition, she has achieved improvement. 4. Anemia-the patient's hemoglobin and hematocrit continue to decrease. We will transfuse 1 unit of packed red blood cells today. I will await Hemoccult for her stools. The patient was found to have both folic acid, and an iron deficiency. We will increase patient's iron to twice daily. We will add folic acid replacement. 5. Profound weakness-patient continues to require significant assistance with ambulation, while we will consult social science teacher for inpatient rehabilitation. This will be arranged as soon as possible. 6. Diabetes-we will continue patient on sliding scale insulin. Blood sugars are controlled. 7. Hypertension-the patient's blood sugar is reasonably controlled on her current regimen. 8. Glaucoma-we will continue home eye drops. DISPOSITION: At this point, patient continues to require detention care in a hospital setting. We will plan discharge to rehabilitation once appropriate. cc: Gavin Arvizu MD
[2017-04-20] MEDS: ZOCOR PO SCH (21:13)
[2017-04-20] MEDS: MELATONIN PO SCH (21:13)
[2017-04-20] MEDS: DESYREL PO SCH (21:16)
[2017-04-21 06:01] LABS: BASO% 0.5 % (0.0-0.8); EOS# 0.24 X1000 (0.0-0.7); EOS% 4.3 % (0.0-10.0); HEMATOCRIT 29.1 % (37.0-47.0); HEMOGLOBIN 9.7 g/dL (12.0-16.0); IMM GRAN# 0.02 X1000 (0.0-0.04); IMM GRAN% 0.4 % (0.0-0.5); LYMPH# 0.99 X1000 (1.2-3.4); LYMPH% 17.8 % (20.5-51.1); MANUAL DIFF NEEDED? NO; MCH 30.2 PG (27-31); MCHC 33.3 g/dL (33-37); MCV 90.7 FL (81-99); MONO# 0.64 X1000 (0.11-0.59); MONO% 11.5 % (1.7-9.3); NEUT% 65.5 % (42.2-75.2); PLT 162 X1000 (130-400); RBC 3.21 XMIL (4.2-5.4)
[2017-04-21 06:22] LABS: CALCIUM 8.8 mg/dL (8.8-10.2); POTASSIUM 4.5 mmol/L (3.5-5.1); TOTAL BILIRUBIN 0.24 mg/dL (0.20-1.00); TOTAL PROTEIN 5.8 g/dL (6.3-8.3)
[2017-04-21 07:28] VITALS: BP 149/55
[2017-04-21] MEDS: ATIVAN PO SCH (08:54)
[2017-04-21] MEDS: EFFEXOR XR PO SCH (08:54)
[2017-04-21] MEDS: ARICEPT PO SCH (08:55)
[2017-04-21] MEDS: NORVASC PO SCH (08:55)
[2017-04-21] MEDS: XALATAN 0.005% OPH SOLN BOTH EYES SCH (08:55)
[2017-04-21] MEDS: FERROUS SULFATE PO SCH (08:55)
[2017-04-21] MEDS: NAMENDA XR PO SCH (08:55)
[2017-04-21] MEDS: PERICOLACE PO SCH (08:55)
[2017-04-21] MEDS: VITAMIN B-12 PO SCH (08:55)
[2017-04-21] MEDS: FOLIC ACID PO SCH (08:55)
[2017-04-21] MEDS: TIMOPTIC 0.5% OPH SOLUTION BOTH EYES SCH (08:56)
--- NOTE | 2017-04-21 10:04 | DISCHARGE SUMMARY ---
ADMISSION DATE: 04/18/2017 DISCHARGE DATE: 04/21/2017 ADMISSION DIAGNOSIS: Alteration of mental status. DISCHARGE DIAGNOSES: 1. Community-acquired pneumonia, clinically improving. 2. Acute renal failure, improving. 3. Alteration of mental status, resolved to baseline dementia. 4. Anemia, requiring 1 unit transfusion of packed red blood cells. 5. Profound weakness, improving with physical therapy. 6. Diabetes, present on arrival. 7. Hypertension, present on arrival. 8. Glaucoma, present on arrival. CONSULTATIONS: None. PROCEDURES: 1. A chest x-ray was performed on 04/18/2017, which revealed focal infiltrate in the lateral left lung base. 2. CT scan of the head was performed on 04/18/2017, which revealed chronic ischemic changes in the brain. No acute abnormality. 3. CT scan of the chest without contrast was performed on 04/19/2017, which revealed left lower lobe pneumonia with a small left pleural effusion. Emphysema. Apical scarring. HISTORY AND PHYSICAL EXAMINATION: See admit note. PHYSICAL EXAMINATION PRIOR TO DISCHARGE: Vital Signs: Temperature 97 degrees, heart rate 78, respirations 20, blood pressure 149/55. General: Elderly, no acute distress. Cardiovascular: Regular rate and rhythm. No significant murmurs, rubs, or gallops. Pulmonary: Clear to auscultation bilaterally. Abdomen: Soft, nontender, nondistended. Positive bowel sounds. Extremities: Moves all extremities well. No significant clubbing, cyanosis, or edema. Dermatologic: Evaluation reveals no evidence of rash. LABORATORY DATA: Prior to discharge, white blood cell count 5.5, hemoglobin 9.7, hematocrit 29.1, platelet count 162,000. Sodium 138, potassium 4.5, chloride 105, bicarbonate 23, BUN 24, creatinine 1.6, glucose 89, calcium 8.8, total bilirubin 0.24, total protein 5.8, albumin 3, alkaline phosphatase 55, AST 12, ALT 7. HOSPITAL COURSE: The patient was admitted as per history and physical examination. Hospital course per condition is as follows: 1. Community-acquired pneumonia versus aspiration pneumonia: Upon admission, the patient was afebrile. No evidence of significant infectious etiology was identified with the exception of alteration of mental status. Chest x-ray and CT scan confirmed the diagnosis. The patient was started on levofloxacin therapy. While hospitalized, clinically patient demonstrated improvement. The patient will be discharged to rehabilitation with 7 additional days of levofloxacin therapy. We will continue to encourage incentive spirometry. We will continue oxygen per protocol. This will be followed closely. 2. Hypoxia: While hospitalized, the patient was noted to have mild hypoxia. She will be discharged to rehabilitation with oxygen therapy. At baseline, she does not require supplemental oxygen. I suspect within the next several days, this can be discontinued. 3. Acute renal failure: Upon admission, the patient's creatinine was noted to be 2.1. With hydration, her creatinine improved to 1.6. Baseline creatinine is approximately 1.2. This will need to be followed as an outpatient as well. Medications will be adjusted accordingly. 4. Alteration of mental status: Upon admission, the patient was noted to have slight alteration of mental status above her baseline dementia. This likely was secondary to her acute illness. While hospitalized, the patient has been pleasant. She has returned to her baseline mild dementia. We will continue her home medications. 5. Anemia: The patient was noted to have a considerable anemia while hospitalized. Anemia panel suggested folic acid and iron deficiencies. At this point, the patient is not a candidate to undergo GI evaluation. As an outpatient, we may consider this. The patient required 1 unit of packed red blood cells while hospitalized. Her hemoglobin and hematocrit are acceptable at discharge. We will continue the patient on iron replacement, folic acid replacement, and vitamin B12 replacement. This will be followed closely. 6. Profound weakness: While hospitalized, the patient was noted to have profound weakness above her baseline. The patient was started on physical therapy. Recommendations were for rehabilitation. The patient will be sent for inpatient rehabilitation with plans to return to her assisted living facility once able. 7. Diabetes: The patient has longstanding disease. She was continued on sliding scale insulin while hospitalized. Blood sugars remained adequately controlled. 8. Hypertension: The patient's blood pressure remains reasonably controlled with her home regimen. 9. Glaucoma: The patient was continued on her home medications with adequate response. 10. Constipation: The patient has a longstanding history of constipation. With the addition of increased iron supplementation, this will need to be followed closely as an outpatient. DISCHARGE CONDITION: Good. DISPOSITION: Discharged to rehabilitation. MEDICATIONS: 1. Acetaminophen 650 mg every 4 hours as needed. 2. Amlodipine 5 mg daily. 3. Vitamin B12 at 1000 mcg daily. 4. Dicyclomine 10 mg 3 times daily as needed. 5. Donepezil 10 mg daily. 6. Famotidine 20 mg twice daily. 7. Iron sulfate 325 mg twice daily. 8. Folic acid 1 mg daily. 9. Guaifenesin ER 600 mg twice daily as needed. 10. Xalatan eye drops 1 drop to each eye daily. 11. Loperamide 2 mg as needed. 12. Loratadine 10 mg daily as needed. 13. Lorazepam 0.5 mg in the morning and 1 mg in the evening. 14. Melatonin 4.5 mg at bedtime. 15. Namenda XR 7 mg daily. 16. Senna-S 1 tablet twice daily, hold for loose stools. 17. Simvastatin 20 mg at bedtime. 18. Timolol 1 drop each to eye twice daily. 19. Trazodone 100 mg at bedtime. 20. Effexor XR 300 mg daily. 21. Maalox as needed. 22. Sliding scale insulin with insulin aspart. 23. Levofloxacin 250 mg daily for the next 7 days. FOLLOWUP: The patient is to follow up with me in approximately 2 weeks. cc: Gavin Arvizu MD
== END 2017-04-21 12:19 ==
LOC: ED 14:26 → 3N 19:24
PROVIDERS: ADMIT Internal Medicine; ATTEND Internal Medicine